=== PATIENT | female | born 1990 | race Two or more races ===

== ENCOUNTER 2025-06-15 11:34 | Emergency (ER) | payer OTHER ==
[~2025-06-15] VITALS: Ht 162.6 cm; Wt 64.4 kg
[2025-06-15 12:46] VITALS: BP 107/69; O2SAT 98
[2025-06-15] MEDS ORDERED: PRENATAL + DHA1 EAC1 PO (12:46)
[2025-06-15 16:04] LABS: BASO % 0.6 % (0.1-1.2); EOS # 0.12 (0.04-0.54); EOS % 1.7 % (0.7-7.0); LYMPH # 2.23 (1.18-3.74); LYMPH % 32.2 % (19.3-53.1); MEAN PLATELET VOLUME 10.10 fl (9.4-12.4); MONO # 0.48 (0.24-0.82); MONO % 6.9 % (4.7-12.5); NEUT # 4.04 (1.56-6.13); NEUT % 58.3 % (34.0-71.1); RED CELL DISTRIBUTION WIDTH 12.8 % (11.6-14.4)
[2025-06-15 16:20] LABS: ERYTHROCYTE SEDIMENTATION RATE 18 mm/hr (0-20)
[2025-06-15 16:35] LABS: INR 0.95
[2025-06-15 16:44] LABS: ALT/SGPT 35.0 U/L (12-78); AST/SGOT 18.0 U/L (15-37); BILIRUBIN TOTAL 0.31 mg/dL (0.3-1.2); BUN CREA RATIO 23.0 (7.0-25.0); CREATININE SERUM 0.44 mg/dL (0.55-1.02); GFR 162.72; GLOBULINA 4.5 G/DL (2.4-3.5); GLUCOSE FASTING 90.0 mg/dL (65-100); OSMOLALITY SERUM 276.0 MOSM/KG (275-295)
[2025-06-15 17:07] LABS: URINE APPEARANCE Clear; URINE BILIRRUBIN Negative (NEGATIVE); URINE BLOOD Negative; URINE COLOR Yellow; URINE GLUCOSE Negative (NEGATIVE); URINE KETONE Trace (NEGATIVE); URINE LEUKOCYTE Negative; URINE NITRATE Negative; URINE PROTEIN Negative (NEGATIVE); URINE UROBILINOGEN 0.2 E.U./dl
[2025-06-15 17:11] LABS: URINE BACTERIA 145.1 uL (0.0-1933); URINE EPITHELIAL CELLS 8.4 uL (0.0-38.8); URINE RBC 6.8 uL (0.0-20.8); URINE WBC 5.6 uL (0.0-23.2)
[2025-06-15 17:39] LABS: URINE CAST 0.00 uL (0.0-1.40)
== END 2025-06-15 18:03 | disposition home or self-care (01) ==
LOC: ER 11:34
DX: O26.891 Other specified pregnancy related conditions, first trimester (principal); R10.20 Pelvic and perineal pain unspecified side; Z3A.11 11 weeks gestation of pregnancy

== ENCOUNTER 2025-07-11 19:49 | Emergency (ER) | payer OTHER ==
[~2025-07-11] VITALS: Ht 162.6 cm; Wt 66.2 kg
[~2025-07-11 19:49] MED LIST: PRENATAL + DHA1 EAC1 PO
[2025-07-11] MEDS ORDERED: ACETAMINOPHEN 500 MG GEL..CAP PO ONE ×2 (21:15→21:25)
[2025-07-11] MEDS ORDERED: FAMOTIDINE/PF 20 MG in 0.9 % SODIUM CHLORIDE 8 ML IV PUSH ONE (21:15)
[2025-07-11] MEDS ORDERED: RINGERS SOLUTION,LACTATED 1,000 ML IV ONE (21:15)
[2025-07-11] MEDS ORDERED: FAMOTIDINE/PF 20 MG/2 ML VIAL ONE (21:25)
[2025-07-11 21:51] LABS: BASO % 0.5 % (0.1-1.2); EOS # 0.10 (0.04-0.54); EOS % 1.5 % (0.7-7.0); LYMPH # 1.99 (1.18-3.74); LYMPH % 30.2 % (19.3-53.1); MEAN PLATELET VOLUME 10.30 fl (9.4-12.4); MONO # 0.38 (0.24-0.82); MONO % 5.8 % (4.7-12.5); NEUT # 4.07 (1.56-6.13); NEUT % 61.7 % (34.0-71.1); RED CELL DISTRIBUTION WIDTH 12.9 % (11.6-14.4)
[2025-07-11 22:00] LABS: INR < 0.93
[2025-07-11 22:35] LABS: ALT/SGPT 26.0 U/L (12-78); AST/SGOT 14.0 U/L (15-37); BILIRUBIN TOTAL 0.19 mg/dL (0.3-1.2); BUN CREA RATIO 34.0 (7.0-25.0); CREATININE SERUM 0.41 mg/dL (0.55-1.02); GFR 175.53; GLOBULINA 4.3 G/DL (2.4-3.5); GLUCOSE FASTING 95.0 mg/dL (65-100); OSMOLALITY SERUM 278.0 MOSM/KG (275-295)
[2025-07-11 23:12] LABS: URINE APPEARANCE Clear; URINE BILIRRUBIN Negative (NEGATIVE); URINE BLOOD Negative; URINE COLOR Yellow; URINE GLUCOSE Negative (NEGATIVE); URINE KETONE Negative (NEGATIVE); URINE LEUKOCYTE Negative; URINE NITRATE Negative; URINE PROTEIN Negative (NEGATIVE); URINE UROBILINOGEN 0.2 E.U./dl
[2025-07-11 23:16] LABS: URINE BACTERIA 331.0 uL (0.0-1933); URINE EPITHELIAL CELLS 3.2 uL (0.0-38.8); URINE RBC 7.1 uL (0.0-20.8); URINE WBC 6.7 uL (0.0-23.2)
[2025-07-11 23:19] LABS: URINE CAST 0.00 uL (0.0-1.40)
[2025-07-11] MEDS ORDERED: ACETAMINOPHEN500 M2 PO (23:36)
[2025-07-12 00:32] VITALS: BP 110/70; O2SAT 98
== END 2025-07-12 00:33 | disposition home or self-care (01) ==
LOC: ER 19:50
PROVIDERS: General Practice
DX: Z33.1 Pregnant state, incidental (principal); Z3A.14 14 weeks gestation of pregnancy; R10.20 Pelvic and perineal pain unspecified side

== ENCOUNTER → 2025-08-27 | Emergency (ER) | payer OTHER ==
[~2025-08-27] VITALS: Ht 162.6 cm; Wt 70.3 kg
[~2025-08-27] MED LIST changes: +ACETAMINOPHEN500 M2 PO
== END | disposition still patient (30) ==
LOC: ER 20:23
DX: O26.892 Other specified pregnancy related conditions, second trimester (principal); Z3A.21 21 weeks gestation of pregnancy